=== PATIENT | male | born 1985 | race Caucasian/White ===

== ENCOUNTER 2019-07-12 14:28 | Inpatient (IN) | payer OTHER ==
[~2019-07-12] VITALS: Ht 180.3 cm; Wt 84.2 kg
[2019-07-12 15:30] VITALS: BP 115/67
--- NOTE | 2019-07-12 15:30 | NUR ---
34 year old MALE admitted to room # 532 for stabilization. Reports an addiction to HEROIN last used YESTERDAY prior to admission. Compliant with admission procedure. Patient denies any anxiety, but looks about room, unable to focus eyes on nurse during interview & C/O hot/cold, drippy nose with flat affect. See assessment forms for additional information about patient status.
--- NOTE | 2019-07-12 15:46 | NUR ---
PATIENT MEETS [facility]. CINA=[id number]. PATIENT WANTS TO FOLLOW UP WITH AA/NA MEETINGS IN HIS LOCAL AREA. GLENROY COELHO B.A. [employer]ER
[2019-07-12 16:18] LABS: BILIRUBIN 1+ (NEGATIVE); BLOOD NEGATIVE (NEGATIVE); CLARITY CLEAR (CLEAR); COLOR YELLOW (YELLOW); GLUCOSE NEGATIVE (NEGATIVE); KETONE NEGATIVE (NEGATIVE); LEUKO ESTERASE NEGATIVE (NEGATIVE); NITRITE NEGATIVE (NEGATIVE); PH 5.5 (5.0-9.0); SPECIFIC GRAVITY >= 1.030 (1.005-1.030)
[2019-07-12 16:24] LABS: URINE AMPHETAMINES < 1000 (1000ng/ml); URINE BARBITURATES < 200 (200ng/ml); URINE BENZODIAZEPINES < 200 (200ng/ml); URINE CANNABINOIDS (THC) < 50 (50ng/ml); URINE COCAINE < 300 (300ng/ml); URINE METHADONE < 300 (300ng/ml); URINE OPIATES > 300 (300ng/ml)
[2019-07-12 16:25] LABS: EPITHELIAL CELLS 0-2; MUCOUS 1+
[2019-07-12 16:29] LABS: URINE PHENCYCLIDINE < 25 (25ng/ml)
[2019-07-12 17:05] LABS: ALBUMIN 3.5 gm/dl (3.1-4.5); ALKALINE PHOSPHATASE 68 U/L (45-117); BUN 9 mg/dl (7-24); CHLORIDE 104 mmol/L (98-107); ETHYL ALCOHOL < 3.0 mg/dl (<3); POTASSIUM 4.6 mmol/L (3.5-5.1); SGOT/AST 28 IU/L (3-35); SGPT/ALT 65 U/L (12-78); SODIUM 135 mmol/L (136-145); TOTAL PROTEIN 7.5 gm/dL (6.4-8.2)
--- NOTE | 2019-07-12 18:00 | NUR ---
Patient LEFT AMA. Patient encouraged to stay and advised of possible consequences of premature discharge. Physician DR. JENKINS and receiving supervisor CYNTHIA notified. Patient instructed what to do regarding care post-departure from the hospital; emergency phone numbers provided. Patent was accompanied by SELF. MARICEL BRENNER
== END 2019-07-12 18:47 | disposition left against medical advice (07) | DRG 770 ==
LOC: 5E 14:28
PROVIDERS: Student in an Organized Health Care Education/Training Program; ADMIT Internal Medicine
DX: F11.23 Opioid dependence with withdrawal (principal); J34.89 Other specified disorders of nose and nasal sinuses; E87.1 Hypo-osmolality and hyponatremia; R00.1 Bradycardia, unspecified; E66.3 Overweight; F17.210 Nicotine dependence, cigarettes, uncomplicated; Z53.21 Procedure and treatment not carried out due to patient leaving prior to being seen by health care provider; Z71.6 Tobacco abuse counseling; Z68.25 Body mass index [BMI] 25.0-25.9, adult